=== PATIENT | female | born 1995 | race Caucasian/White ===

== ENCOUNTER 2018-02-08 02:26 | Emergency (ER) | payer OTHER ==
[2018-02-08] MEDS: TETRACAINE 0.5% 4 ML OPH BOTH EYES (02:48)
[2018-02-08] MEDS: SODIUM CHLORIDE 0.9% 1L IRRIG IRR (02:48)
[2018-02-08] MEDS: HYDROCODONE/APAP (5/325) TAB PO (03:23)
[2018-02-08] MEDS: LORAZEPAM 1 MG TAB PO (03:23)
[2018-02-08] MEDS: KETOROLAC 60 MG INJ IM (03:27)
[2018-02-08] MEDS: SILVER SULFADIAZINE 1% 25 GM CR TOP (03:30)
== END 2018-02-08 04:15 | disposition home or self-care (01) ==
LOC: FTE 02:26
DX: T59.891A Toxic effect of other specified gases, fumes and vapors, accidental (unintentional), initial encounter (principal); T22.132A Burn of first degree of left upper arm, initial encounter; X19.XXXA Contact with other heat and hot substances, initial encounter; Y92.9 Unspecified place or not applicable
CPT/HCPCS: 16000; 99284-25